=== PATIENT | male | born 1950 | race Caucasian/White ===

== ENCOUNTER 2016-06-27 23:12 | Emergency (ER) | payer MEDICARE, OTHER ==
[~2016-06-27 23:12] MED LIST: ADVIL200 MG; AFRIN15 ML NS; ALEVE220 M2 PO; ASPIR 8181 MG PO; DAILY MULTIPLE1 EAC2 PO; DIOVAN HCT 160/1 TAB PO; DIOVAN HCT 1601 EACH PO; ELIQUIS5 M1 PO; FISH OIL 1,2001 CAP PO; FISH OIL 1,2001 EAC5 PO; FLAGYL500 MG PO; FLOMAX0.4 M1 PO; FLOMAX0.4 MG PO; GLUCOPHAGE850 M1 PO; GLUCOSAMINE/CHO1 T; HYDROCHLOROTHIA25 MG PO; HYDROCODONE/A1 UDTA; INDOMETHACIN50 M1 PO; LEVAQUIN750 MG PO; LIPITOR10 M1 PO; MULTIVITAMIN1 TAB PO; NAPROSYN500 MG; NORCO 5/3251 TAB PO; OMNICEF300 MG PO; PREDNISONE20 MG PO; PROSCAR5 M1 PO; TOPROL XL200 M1 PO; TOPROL XL200 MG PO; TYLENOL650 MG PO; VITAMIN C; WELLBUTRIN SR200 MG PO; XALATAN2.5 M1 EACH EYE; XANAX0.5 M1 PO; ZYLOPRIM300 M1 PO
[2016-06-27] MEDS ORDERED: PAMELOR10 M2 PO (23:19)
[2016-06-28 01:12] LABS: ALBUMIN 3.4 g/dl (3.5-5.0); ALKALINE PHOSPHATASE 110 U/L (33-138); ALT/SGPT 30 U/L (12-78); BILIRUBIN,TOTAL 0.4 mg/dl (0.0-1.5); BLOOD UREA NITROGEN 15 mg/dl (6-24); CALCIUM 8.9 mg/dl (8.5-10.5); CARBON DIOXIDE-VENOUS 25 mmol/L (22-32); CHLORIDE 104 mmol/l (96-110); CREATININE 1.05 mg/dl (0.60-1.30); GLUCOSE 176 mg/dL (70-110); SODIUM 139 mmol/L (135-145); eGFR VALUE FOR BLACK 85 mL/Min
[2016-06-28 01:13] LABS: ANION GAP 14 mmol/L (0-20); AST/SGOT 27 U/L (10-40); MAGNESIUM 1.7 mg/dl (1.3-2.6)
[2016-11-26] MEDS ORDERED: LAMISIL250 M1 PO (11:51)
[2016-11-26] MEDS ORDERED: NIZORAL A-D200 ML TOP (11:52)
[2016-11-26] MEDS ORDERED: CPAP INH (11:53)
[2016-11-26] MEDS ORDERED: NORVASC5 M2 PO (11:54)
[2016-11-26] MEDS ORDERED: LYRICA75 MG/CAP PO (12:02)
[2016-11-26] MEDS ORDERED: METAMUCIL660 GM PO (12:08)
== END 2016-06-28 02:14 ==
LOC: EDMED 23:12
PROVIDERS: Family Medicine
DX: I10 Essential (primary) hypertension (principal); E11.9 Type 2 diabetes mellitus without complications; G47.33 Obstructive sleep apnea (adult) (pediatric); Z87.891 Personal history of nicotine dependence; Z96.651 Presence of right artificial knee joint; Z79.899 Other long term (current) drug therapy

== ENCOUNTER 2016-12-01 10:12 | Day surgery (SDC) | payer MEDICARE, OTHER ==
[~2016-12-01] VITALS: Ht 177.8 cm; Wt 169.4 kg
[~2016-12-01 10:12] MED LIST changes: +CPAP INH; +LAMISIL250 M1 PO; +LYRICA75 MG/CAP PO; +METAMUCIL660 GM PO; +NIZORAL A-D200 ML TOP; +NORVASC5 M2 PO; +PAMELOR10 M2 PO
[2016-12-01] MEDS ORDERED: FLONASE ALLERG9.9 ML (11:40)
== END 2016-12-01 15:33 ==
LOC: SRG 10:12 → SHSB 10:12 → SRG 10:30 → ORE 12:47 → PACU 13:30 → SHSB 14:35 → SRG 15:33
PROC: 099500Z Drainage of Right Middle Ear with Drainage Device, Open Approach (ICD-10-PCS; principal; 2016-12-01)
DX: H69.81 Other specified disorders of Eustachian tube, right ear (principal); H65.91 Unspecified nonsuppurative otitis media, right ear; I10 Essential (primary) hypertension; I48.91 Unspecified atrial fibrillation; E11.42 Type 2 diabetes mellitus with diabetic polyneuropathy; G47.30 Sleep apnea, unspecified; Z87.891 Personal history of nicotine dependence; Z87.19 Personal history of other diseases of the digestive system; Z79.899 Other long term (current) drug therapy; Z79.84 Long term (current) use of oral hypoglycemic drugs; Z98.890 Other specified postprocedural states
CPT/HCPCS: C1726; J0171